=== PATIENT | female | born 1960 | race Caucasian/White ===

== ENCOUNTER 2017-02-04 11:44 | Emergency (ER) | payer OTHER ==
[~2017-02-04] VITALS: Ht 167.6 cm; Wt 85.7 kg
[~2017-02-04 11:44] MED LIST: ALBUTEROL0.09 MG/A1 INH; FLOVENT HFA12 G1 INH; ROBITUSSIN W/CO10 ML PO; ZITHROMAX Z-PA250 M1 PO
--- NOTE | 2017-02-04 13:27 | ED ANKLE/FOOT INJURY COMPLAINT ---
History of Present Illness General Chief Complaint: Foot or Ankle Injury Stated Complaint: L FT PAIN; SEEN AT [place] YESTERDAY FOR SAME Source: patient Exam Limitations: no limitations Vital Signs & Intake/Output Vital Signs & Intake/Output Vital Signs Date Time Temp Pulse Resp B/P B/P Pulse O2 O2 Flow FiO2 Mean Ox Delivery Rate 02/04 1454 Room Air 02/04 1431 97.4 76 19 110/74 97 Room Air 02/04 1148 97.9 80 20 109/72 96 Room Air Allergies Coded Allergies: Sulfa (Sulfonamide Antibiotics) (Mild, RASH 02/04/17) Reconcile Medications Fluticasone Propionate (Flovent Hfa) 110 MCG/ACTUATION AER.W.ADAP 2 PUF INH BID PRN SHORTNESS OF BREATH (Reported) Ibuprofen 800 MG TABLET 1 TAB PO TID pain Oxycodone HCl/Acetaminophen (Percocet 5-325 MG Tablet) 5 MG-325 MG TABLET 1-2 TAB PO Q6P PRN pain Triage Note: C/O LEFT FOOT PAIN SINCE YESTERDAY. STATES SHE GOT OUT OF BED AND HEARD A LOUD POP AND WAS UNABLE TO WALK ON IT AFTER. STATES SHE WENT TO [place] AND HAD AN XRAY AND THEY SAID NOTHING IS WRONG WITH IT Triage Nurses Notes Reviewed? yes Occurred: yesterday Duration: day(s): (1), constant, continues in ED Timing: recent history Severity: moderate, severe Pain/Injury Location: Left: Foot, Ankle. No Modifying Factors: none HPI: 56-YEAR-OLD FEMALE COMES INTO THE EMERGENCY ROOM FOR FURTHER EVALUATION OF LEFT FOOT PAIN AND ANKLE PAIN. pATIENT REPORTS THAT SHE WAS standing yesterday and she felt a pop in her left foot/ankle. Patient has had some associated swelling. Patient went to [facility] and had an x-ray done. She reports that they did not do anything for her. She reports that they saw no fractures on the x-ray. Denies any vomiting. Denies any injury or trauma anywhere else. Denies any other associated symptoms. (LUCIANA CRONIN) Past History Travel History Traveled to [place] past 21 day No Medical History Any Pertinent Medical History? see below for history Respiratory: asthma Gastrointestinal: hiatal hernia Surgical History Surgical History: non-contributory Psychosocial History Who do you live with Patient/Self Services at Home None What is your primary language Spanish Tobacco Use: Current Daily Use Daily Tobacco Use Amount/Type: => 5 Cigarettes daily ETOH Use: occasional use Illicit Drug Use: denies illicit drug use Family History Hx Contributory? No (LUCIANA CRONIN) Review of Systems Review of Systems Constitutional: Reports: no symptoms. EENTM: Reports: no symptoms. Respiratory: Reports: no symptoms. Cardiovascular: Reports: no symptoms. GI: Reports: no symptoms. Genitourinary: Reports: no symptoms. Musculoskeletal: Reports: see HPI. Skin: Reports: no symptoms. Neurological/Psychological: Reports: no symptoms. Hematologic/Endocrine: Reports: no symptoms. Immunologic/Allergic: Reports: no symptoms. All Other Systems: Reviewed and Negative (LUCIANA CRONIN) Physical Exam Physical Exam General Appearance: well developed/nourished, mild distress Head: atraumatic Eyes: Bilateral: normal appearance, EOMI. Ears, Nose, Throat: normal ENT inspection, hearing grossly normal Neck: normal inspection Cardiovascular/Respiratory: no respiratory distress Back: normal inspection Leg/Knee/Thigh Left: normal inspection Ankle Left: soft tissue tenderness, limited range of motion Foot Left: limited range of motion, soft tissue tenderness, swelling Neuro/Vascular: normal motor function, normal sensation Tendon: normal tendon function Psychiatric: awake, alert, oriented x 3 Skin: intact, normal color, warm/dry (LUCIANA CRONIN) Progress Differential Diagnosis: arterial insufficiency, cellulitis, septic arthritis, gout, fracture, dislocation, sprain, contusion Plan of Care: Orders Procedure Date/time Status Durable Medical Equipment 02/04 1444 Active Diagnostic Imaging: Viewed by Me: Radiology Read. Discussed w/RAD: Radiology Read. Radiology Impression: SERVICE DATE: 02/04/17-1326 EXAM TYPE: RAD - XRY-ANKLE 3 OR MORE VIEWS L; XRY-FOOT COMPLETE, LEFT Indication: Trauma EXAMINATION: Ankle and foot on left. FINDINGS: Left foot 3 views. FINDINGS: No evidence for acute fracture or dislocation. Left ankle: Comparison previous 06/01/2013. There is irregularity laterally. This may be ongoing degenerative change. Small avulsion cannot be excluded. At the talar attachment. IMPRESSION: Bony irregularity laterally at the level of the ankle may be ongoing degeneration. Avulsion injury cannot be excluded. There is soft tissue swelling. No fracture in the foot DICTATED BY: ANAMARIA CRAWLEY MD DATE/TIME DICTATED:02/04/171417 [employer] INTER[employer]:[facility] DATE/TIME TRANSCRIBED:02/04/171417 (LUCIANA CRONIN) Departure Departure Disposition: HOME OR SELF CARE Condition: Stable Clinical Impression Primary Impression: Sprain of left foot Secondary Impressions: Avulsion fracture of ankle Referrals: LINH WAGNER,TISH UNKNOWN (PCP/Family) Additional Instructions: Ice. Rest. Motrin for pain. Elevation. Follow-up with orthopedic doctor provided. If symptoms do not improve you'll require further evaluation with possible repeat x-rays as well as evaluation by guest specialist. Sprains can last anywhere from days to weeks. No high impact running or jumping if you have an ankle sprain or any type of lower extremity sprain. Return to normal activity only after symptoms have resolved. At this time due to the fact that there is a questionable avulsion fracture you are to stay nonweightbearing. Please go over all results of today's visit with your primary care doctor. Contact your primary care doctor to let them know you were here in the emergency room. There may be nonspecific findings which may not be related to your visit today here in the emergency room but may require further evaluation and chronic monitoring by your primary care doctor. If you had a laceration today the chance of foreign body always remains. You should follow-up with your primary care doctor for recheck in 3-5 days for a wound check. If you had an x-ray done there is a chance that a fracture could have been missed on initial read and you should follow-up with your primary care doctor for repeat x-rays if symptoms persist. If your blood pressure was elevated here in the emergency room please have rechecked by her primary care doctor within the next 48 hours by your primary care doctor. If you were prescribed a narcotic here in the emergency room or any type of controlled substances you're not allowed to drive while taking this medication or operate any type of heavy machinery. Narcotics can make you feel lightheaded dizziness nausea and can cause constipation. You may need to car pick up driver a stool softener. Thank you for choosing [facility] emergency room. Please return to the emergency room immediately if you have any other concerns worsening of symptoms. Departure Forms: Customer Survey General Discharge Information Prescriptions: Current Visit Scripts Ibuprofen 1 TAB PO TID #20 TAB Oxycodone HCl/Acetaminophen (Percocet 5-325 MG Tablet) 1-2 TAB PO Q6P PRN pain #10 TAB Comments 02/04/2017 2:54:35 PM Due to possible fracture even though there is a very low suspicion from my perspective patient was put in a orthopedic boot and sent to orthopedic and told to stay nonweightbearing. Symptoms most consistent with sprain. Clinically she looks well. Pain improved after Percocet. Return if any other concerns. (LUCIANA CRONIN) PA/ELECTRON BEAM WELDER SETTER Co-Sign Statement Statement: ED Attending supervision documentation- [] I saw and evaluated the patient. I have also reviewed all the pertinent lab results and diagnostic results. I agree with the findings and the plan of care as documented in the PA's/ELECTRON BEAM WELDER SETTER's documentation. [X] I have reviewed the ED Record and agree with the PA's/ELECTRON BEAM WELDER SETTER's documentation. [] Additions or exceptions (if any) to the PAs/ELECTRON BEAM WELDER SETTER's note and plan are summarized below: [] (ANAMARIA IGNACIO DO) Procedures Splinting Location: left ankle/foot Pre-Made Type: pneumatic boot Splint Applied By: splint applied by me Pre-Proc Neuro Vasc Exam: normal Post-Proc Neuro Vasc Exam: normal (LUCIANA CRONIN)
--- NOTE | 2017-02-04 14:26 | RADIOLOGY REPORT ---
Indication: Trauma EXAMINATION: Ankle and foot on left. FINDINGS: Left foot 3 views. FINDINGS: No evidence for acute fracture or dislocation. Left ankle: Comparison previous 06/01/2013. There is irregularity laterally. This may be ongoing degenerative change. Small avulsion cannot be excluded. At the talar attachment. IMPRESSION: Bony irregularity laterally at the level of the ankle may be ongoing degeneration. Avulsion injury cannot be excluded. There is soft tissue swelling. No fracture in the foot
[2017-02-04 14:31] VITALS: BP 110/74
[2017-02-04] MEDS ORDERED: IBUPROFEN800 M1 PO (14:43)
[2017-02-04] MEDS ORDERED: PERCOCET 5-3251 EACH PO (14:43)
== END 2017-02-04 14:56 ==
LOC: ERH 11:44
DX: S82.899A Other fracture of unspecified lower leg, initial encounter for closed fracture (principal); S93.602A Unspecified sprain of left foot, initial encounter; X58.XXXA Exposure to other specified factors, initial encounter; Y93.89 Activity, other specified; Y92.9 Unspecified place or not applicable
CPT/HCPCS: 73610-LT; 73630-LT